=== PATIENT | female | born 1975 | race Caucasian/White ===

== ENCOUNTER 2019-10-16 12:08 | Emergency (ER) | payer OTHER, SELFPAY ==
[2019-10-16 12:18] VITALS: BP 116/84; PULSE 94; RESP 20; TEMP 37.3; O2SAT 99
--- NOTE | 2019-10-16 12:53 | ED.SKABFB ---
HPI - Skin/Abscess/Foreign Bdy General Chief complaint: Skin/Abscess/Foreign Body Stated complaint: Rash on back Time Seen by Provider: 10/16/19 12:53 Source: patient and RN notes reviewed Mode of arrival: ambulatory Limitations: no limitations History of Present Illness HPI narrative: 24-year-old female presents with concern for rash. Reports 4 days ago she got a cortisone injection in her right foot and subsequently had hives. She has been taking 2 tabs of Benadryl nightly. Reports most of the rash has resolved, however she still has an itchy rash on her back. She denies swollen lips, swollen tongue, fever, trouble breathing, trouble swallowing, nausea, vomiting. MD complaint: rash Related Data Home Medications Medication Instructions Recorded Confirmed amitriptyline 75 mg PO HS 10/16/19 10/16/19 buspirone 7.5 mg PO BID 10/16/19 10/16/19 carbamazepine 300 mg PO BID 10/16/19 10/16/19 escitalopram oxalate 20 mg PO DAILY 10/16/19 10/16/19 loratadine 10 mg PO DAILY 10/16/19 10/16/19 sumatriptan succinate 100 mg PO ONCE PRN 10/16/19 10/16/19 topiramate [Trokendi XR] 200 mg PO BID 10/16/19 10/16/19 zonisamide 400 mg PO HS 10/16/19 10/16/19 Allergies Allergy/AdvReac Type Severity Reaction Status Date / Time bacitracin Allergy Hives Verified 10/16/19 12:35 [From Neosporin ([id number])] caffeine Allergy Hives Verified 10/16/19 12:35 cyclobenzaprine Allergy Hives Verified 10/16/19 12:35 [From Flexeril] neomycin Allergy Hives Verified 10/16/19 12:35 [From Neosporin ([id number])] polymyxin B Allergy Hives Verified 10/16/19 12:35 [From Neosporin ([id number])] Review of Systems Review of Systems: Narrative: CONSTITUTIONAL: Denies malaise, chills, sweats, or fever. EYES: Denies visual changes, redness, or discharge. ENT: Denies swollen lips, swollen tongue, trouble swallowing CARDIOVASCULAR: Denies chest pain, palpitations RESPIRATORY: Denies cough or dyspnea. GASTROINTESTINAL: Denies abdominal pain, nausea, vomiting, diarrhea SKIN: Reports itchy rash on back MUSCULOSKELETAL: Denies myalgia. NEUROLOGIC: Denies numbness, weakness. All systems reviewed & are unremarkable except as noted in HPI and below PMFSH Comments At time of signature, agree with nursing past medical, surgical, social and family history. There is no relevant family history pertinent to the presenting complaint Exam Narrative: Exam Narrative: GENERAL: Well-appearing, well-nourished, and in no acute distress. HEAD: Normocephalic EYES: PERRLA, conjunctivae clear, and EOMI. No nystagmus. ENT: Nares clear, turbinates pink, no rhinorrhea or epistaxis. Mucous membranes moist. Oropharynx without erythema or lesions. Tonsils not enlarged and without exudate. NECK: Supple. CHEST: No respiratory distress. Clear to auscultation. No bony deformities, no asymmetry. Speaks in full sentences. HEART: Regular rate and rhythm. No murmur heard. Normal peripheral pulses. SKIN: Warm, dry. Scattered pink raised areas noted to back consistent with urticaria NEURO: Alert and oriented x3. PSYCH: Normal mood and affect Course Course Emergency Course: Patient is aware of diagnosis, understands and agrees to treatment plan. Anticipatory guidance given. Patient agrees to follow-up as directed and is aware of reasons to seek care at the emergency department. Portions of this record may have been created with voice recognition software Vital Signs Vital signs: Vital Signs Temperature 99.1 F 10/16/19 12:18 Pulse Rate 94 10/16/19 12:18 Respiratory Rate 10/16/19 12:18 Blood Pressure 116/84 10/16/19 12:18 Pulse Oximetry 99 10/16/19 12:18 Temperature 99.1 F 10/16/19 12:18 Pulse Rate 94 10/16/19 12:18 Respiratory Rate 10/16/19 12:18 Blood Pressure 116/84 10/16/19 12:18 Pulse Oximetry 99 10/16/19 12:18 Reviewed. MDM - Skin/Abscess/Foreign Bdy MDM Narrative Medical decision making narra
== END 2019-10-16 13:04 | disposition home or self-care (01) ==
PROVIDERS: Emergency Provider Nurse Practitioner; PCP Family Medicine
DX: L50.9 Urticaria, unspecified (principal); G40.909 Epilepsy, unspecified, not intractable, without status epilepticus; F41.9 Anxiety disorder, unspecified
CPT/HCPCS: 99213; G0463